=== PATIENT | male | born 1945 | race Caucasian/White ===

== ENCOUNTER → 2017-09-24 | Outpatient (CLI) | payer OTHER ==
[~2017-09-24] MED LIST: OPTIRAY 320 IV PRN
--- NOTE | 2017-09-24 09:04 | DIAGNOSTIC IMAGING REPORT ---
ABD/PELVIS COMBO CLINICAL HISTORY: 72 years-old Male presenting with Z12.5 hematuria, prostate cancer screening. TECHNIQUE: Multidetector CT of the abdomen and pelvis was performed before and after the administration of intravenous contrast. IV contrast: 119 mL of Optiray 320. A dose lowering technique was used consistent with the principles of ALARA (as low as reasonably achievable). COMPARISON: None. CT DOSE (mGy.cm): The estimated cumulative dose is 2338.43 mGycm. FINDINGS: Repair Cameraman topogram: Unremarkable. Lung bases: Asymmetric minimal patchy groundglass opacity primarily in a dependent distribution at the left lung base, possibly atelectasis. Coronary artery aortic valve calcification. Top normal heart size. No pericardial or pleural effusion. Liver: Normal morphology. Normal density. No focal lesion. Patent hepatic vasculature. Biliary: No intrahepatic or extrahepatic biliary ductal dilatation. Normal gallbladder. Pancreas: Normal. Spleen: Normal. Adrenal glands: Normal. Kidneys and ureters: No nephrolithiasis. Normal excretion from the kidneys bilaterally. Well-defined hypodense lesion in the left kidney consistent with simple cyst. Ureters normal. Bladder: Allowing for underdistention, mild circumferential bladder wall thickening likely indicating chronic outlet obstruction. Numerous bladder calculi evident. Pelvic organs: Prostate enlargement likely secondary to benign prostatic hyperplasia. Bowel: Limited diverticulosis of the proximal sigmoid colon. The appendix is normal. No bowel obstruction. Mild proximal jejunal wall thickening suggested without perienteric inflammatory change. Peritoneal cavity: No free fluid or intraperitoneal gas. Lymph nodes: No enlarged lymph nodes in the abdomen or pelvis. Vasculature: Atherosclerosis of the normal caliber abdominal aorta. IVC patent. Abdominal wall: Small fat-containing umbilical hernia. Bilateral varicoceles may be present. Musculoskeletal: Degenerative changes of the spine. IMPRESSION: 1. Numerous bladder calculi which could account for the patient's hematuria. No nephrolithiasis or hydronephrosis. 2. Prostatomegaly likely indicates underlying benign prostatic hyperplasia. Suspected resulting chronic bladder outlet obstruction. Prostate MRI allows for assessment of potential underlying prostate cancer. 3. Suggestion of jejunal wall thickening. This could be due to underdistention or suggest a mild enteritis. 4. Patchy minimal groundglass opacity at the left lung base, possibly atelectasis. Electronically signed by: Nick Laurent M.D. 09/24/2017 9:03 AM Dictated Date/Time: 09/24/2017 8:51 AM
== END | disposition home or self-care (01) ==
LOC: C.CTS 08:25
PROVIDERS: ATTEND Urology
DX: Z12.5 Encounter for screening for malignant neoplasm of prostate (principal); N21.0 Calculus in bladder; N42.9 Disorder of prostate, unspecified; R91.8 Other nonspecific abnormal finding of lung field

== ENCOUNTER 2017-11-09 09:12 | Day surgery (SDC) | payer OTHER ==
[2017-10-19 10:43] VITALS: BMI 35.0
--- NOTE | 2017-10-26 12:43 | PAT Medication Instructions ---
Service Date Oct 26, 2017. Current Home Medication List Aspirin (Aspirin Ec), 81 MG PO QAM Coenzyme Q10 (Ubidecarenone) (Coq10), 100 MG PO QAM Fesoterodine Fumarate (Toviaz), 1 TAB PO HS Garlic (Garlic), 1,000 MG PO QAM Hydrochlorothiazide (Hctz), 25 MG PO QAM Indomethacin (Indocin), 50 MG PO DAILY PRN for MUSCLE SPASMS Krill Oil (Krill Oil), 1 CAP PO QAM Lisinopril (Prinivil), 20 MG PO QAM Simvastatin (Zocor), 40 MG PO QPM Sotalol HCl (Sotalol HCl), 40 MG PO BID Medication Instructions For Your Scheduled Surgery Contact your surgeon for instructions for: Indomethacin (Indocin), 50 MG PO DAILY PRN for MUSCLE SPASMS - Hold the following medications 2 weeks prior to surgery: Krill Oil (Krill Oil), 1 CAP PO QAM Garlic (Garlic), 1,000 MG PO QAM Coenzyme Q10 (Ubidecarenone) (Coq10), 100 MG PO QAM - Hold the following medications the morning of surgery: Hydrochlorothiazide (Hctz), 25 MG PO QAM Lisinopril (Prinivil), 20 MG PO QAM - Take the following medications the morning of surgery with a sip of water: Sotalol HCl (Sotalol HCl), 40 MG PO BID Aspirin (Aspirin Ec), 81 MG PO QAM - Take the following medications as scheduled the night before surgery: Sotalol HCl (Sotalol HCl), 40 MG PO BID Simvastatin (Zocor), 40 MG PO QPM Fesoterodine Fumarate (Toviaz), 1 TAB PO HS If you have any questions please call us at [phone] or [phone] or [phone]
--- NOTE | 2017-10-26 13:48 | DIAGNOSTIC IMAGING REPORT ---
CHEST 2 VIEWS ROUTINE CLINICAL HISTORY: Preoperative evaluation. COMPARISON STUDY: No previous studies for comparison. FINDINGS: Lung volumes are normal. No consolidation is evident. There is no evidence of pulmonary edema. There is no pneumothorax or pleural effusion. Right neck surgical clips are noted. Cardiac size is at the upper limits of normal. IMPRESSION: 1. No acute cardiopulmonary findings. 2. Borderline cardiomegaly. Electronically signed by: Pavel Burks M.D. 10/26/2017 1:47 PM Dictated Date/Time: 10/26/2017 1:45 PM
[2017-10-26 13:54] LABS: BASO % 0.4 %; BASO ABS # 0.04 K/uL (0-0.2); EOS % 3.4 %; HEMATOCRIT 44.5 % (42-52); HEMOGLOBIN 14.9 g/dL (14.0-18.0); IG# 0.04 K/uL (0.00-0.02); LYMPH % 27.4 %; LYMPH ABS # 2.45 K/uL (1.2-3.4); MEAN CELL VOLUME 87.1 fL (80-100); MEAN CORPUSCULAR HEMOGLOBIN 29.2 pg (25-34); MEAN CORPUSCULAR HGB CONC 33.5 g/dl (32-36); MEAN PLATELET VOLUME 10.9 fL (7.4-10.4); MONO % 11.6 %; MONO ABS # 1.04 K/uL (0.11-0.59); NEUT % 56.8 %; NEUT ABS # 5.06 K/uL (1.4-6.5); PLATELET COUNT 208 K/uL (130-400); RED CELL DISTRIBUTION WIDTH SD 44.2 fL (36.4-46.3); WHITE BLOOD COUNT 8.93 K/uL (4.8-10.8)
[2017-10-26 14:25] LABS: CALCIUM 9.1 mg/dl (8.5-10.1); CREATININE 0.94 mg/dl (0.60-1.40); POTASSIUM 3.6 mmol/L (3.5-5.1)
[~2017-11-09] VITALS: Ht 172.7 cm; Wt 105.9 kg
[~2017-11-09 09:12] MED LIST changes: +ASPI81TA28 PO; +ATROPINE SULFATE 0.1 MG/ML 5ML SYR IV PRN; +BTP80 PO; +CIPROFLOXACIN / D5W 400 MG IV SCH; +COEN100C7 PO; +EpHEDrine SULFATE INJ 50 MG/ML AMP IV PRN; +FESO8TAB PO; +GARL10007 PO; +HYDR25TA4 PO; +INDO-24 PO; +KRIL1000 PO; +LACTATED RINGER'S 1000ML 1,000 ML IV SCH; +LISI20TA3 PO; -OPTIRAY 320 IV PRN; +SIMV40TA2 PO
[2017-11-09 09:44] VITALS: BP 190/82; PULSE 88; TEMP 36.5; O2SAT 92; Ht 172.7 cm; Wt 105.9 kg
[2017-11-09] MEDS ORDERED: CIPR-255 PO (09:54)
[2017-11-09] MEDS ORDERED: OXYC7.5T65 PO (09:54)
[2017-11-09] MEDS ORDERED: PHEN-775 PO (09:54)
--- NOTE | 2017-11-09 09:56 | Discharge Instructions ---
Discharge Instructions Date of Service Nov 09, 2017. Admission Reason for Admission: Benign Prostatic Hyperplasia, Bladder Stones Discharge Discharge Diagnosis / Problem: BPH, bladder stone s/p laser cystolithopaxy, TURBN, fulg prostate, Urolift Discharge Goals Goal(s): Improve function, Improve disease control, Therapeutic intervention Activity Recommendations Activity Limitations: as noted below Lifting Limitations: no more than 25 pounds, gradually increase as tolerated Exercise/Sports Limitations: rest today, gradually increase as tolerated May Resume Sexual Activity: after follow-up appointment Shower/Bathe: no limitations Driving or Machine Use: resume 1 day after discharge . Instructions / Follow-Up Instructions / Follow-Up In office as scheduled for postoperative visit. Removal of miranda catheter on Nov 11 at 10:45 AM in [place] Office. Current Hospital Diet Patient's current hospital diet: Discharge Diet Recommended Diet: Regular Diet (good fluid intake) Procedures Procedures Performed: Laser cystolithopaxy, transurethral button vaporization of bladder, fulguration of prostatic bleeders, Urolift Pending Studies Studies pending at discharge: yes List of pending studies: Stone analysis. Medical Emergencies . Who to Call and When: Medical Emergencies: If at any time you feel your situation is an emergency, please call 911 immediately. . Non-Emergent Contact Non-Emergency issues call your: Urologist Call Non-Emergent contact if: you have a fever, temperature is above 101, your pain is not controlled, your pain is worsening, your pain is unusual for you, your pain is concerning you, you have any medication questions . . "Provider Documentation" section prepared by Clarence Britton. . VTE Core Measure Inpt VTE Proph given/why not?: SCD's [place] Drug Monitoring Program Search Results: patient reviewed within database, no issues identified
--- NOTE | 2017-11-09 10:23 | History & Physical Bridge Note ---
H&P Re-Evaluation Bridge Note: I have examined the patient, reviewed the History & Physical and in the interval since the performance of the History & Physical I have noted the following changes of clinical significance: No changes noted
--- NOTE | 2017-11-09 10:33 | [facility] Post Operative Brief Note ---
Immediate Operative Summary Operative Date Nov 09, 2017. Pre-Operative Diagnosis Bladder stone, BPH Post-Operative Diagnosis Same Procedure(s) Performed Laser cystolithopaxy, transurethral bipolar button vaporization of bladder neck, fulguration of prostatic bleeders, Urolift Surgeon Tobi Patterson Cogeneration Operator Surgeon(s) NA Estimated Blood Loss 30 Findings 4 Urolift used, no residual stones, obstructive bladder neck vaporized. Specimens Bladder stone Drains 22 fr 10 cc H2) Anesthesia GALMA Complication(s) None Disposition Recovery Room / PACU
[2017-11-09] MEDS ORDERED: PROPOFOL IV EMULSION 10 MG/ML 20 ML VIAL IV ONE (12:30)
[2017-11-09] MEDS ORDERED: FENTANYL CITRATE INJ 50 MCG/1 ML 2 ML VIAL ONE ×3 (12:32→15:09)
[2017-11-09] MEDS ORDERED: DEXAMETHASONE SOD INJ 4 MG/ML VIAL ONE (13:06)
[2017-11-09] MEDS ORDERED: LIDOCAINE HCL 2% 2 ML VIAL (20MG/ML) ONE (13:06)
[2017-11-09] MEDS ORDERED: ONDANSETRON INJ 2 MG/ML 2 ML VIAL ONE (13:06)
[2017-11-09] MEDS ORDERED: EpHEDrine SULFATE 50MG/5ML SYR ONE (13:16)
[2017-11-09] MEDS ORDERED: BELLADONNA/OPIUM SUPP 60 MG SUPP PR ONE (13:59)
[2017-11-09] MEDS ORDERED: PHENAZOPYRIDINE HCL 200 MG TAB PO PRN (14:45)
[2017-11-09] MEDS ORDERED: OXYCODONE/ACETAMINOPHEN 5-325 TAB PO PRN ×2 (14:45)
--- NOTE | 2017-11-09 14:51 | [facility] Operative Report ---
Operative Report Operative Date Nov 09, 2017. Pre-Operative Diagnosis Bladder stone, Benign Prostate Hypertrophy Post-Operative Diagnosis Bladder Stone, Benign Prostate Hypertrophy Procedure(s) Performed Laser cystolithopaxy, transurethral bipolar button vaporization of bladder neck, fulguration of prostatic bleeders, Urolift implantation Surgeon Tobi Patterson Logging Assistant Surgeon(s) NA Estimated Blood Loss 30 Findings Four Urolift implants used with open prostatic fossa, bleeding and obstructive bladder neck tissue vaporized using bipolar button, no residual stones noted after completion of laser cystolithopaxy. Specimens A: Bladder Stone Fragments for Chemical Analysis Drains 22 fr 10 cc H2) Anesthesia GALMA Complication(s) None Disposition Recovery Room / PACU Indications Patient is a 72-year-old male with BPH, numerous large bladder stones and urge incontinence who is here today for laser cystolitholapaxy and implantation of Urolift. Please see H&P for further details. Intravenous ciprofloxacin provided for antibiotic coverage and SCDs used for DVT prophylaxis. Description of Procedure Patient was properly identified and brought into the operative suite after identification for appropriate consent of the chart. General anesthesia with laryngeal mask was initiated and patient was prepped and draped in the standard fashion for this procedure. Full timeout procedure was followed. 26 Afghan resectoscope was introduced into the bladder under direct visualization using an angled ureteral access catheter a 600 holmium laser fiber was used on both dusting and standard settings to fragment the patient's large and multiple bladder stones and irrigated free. This process took over an hour due to the size and resistance of the stones. No significant injuries or perforations bladder were appreciated throughout the case. Bladder inflammation and irritation was present as well as trabeculation consistent with chronic bladder outlet obstruction. Ureteral orifices were appreciated to be in the normal anatomic location and effluxing clear yellow urine bilaterally. These were free of injury the end of the case. After this was complete and all stone fragments were irrigated free some bleeding from an obstructive bladder neck was appreciated. Bipolar button was used to vaporizes bladder neck tissue and create relaxing incisions at the 5 and 7 o'clock position to avoid future bladder neck contracture. Bipolar button was also used for hemostasis at the level of the bladder neck as well as within the prostatic fossa or other bleeding prostate vessels were appreciated. After hemostasis was obtained the bipolar resectoscope was removed and the Urolift scope was placed. Four Urolift implants were placed with 2 being at the level of the bladder neck on the left and right-hand side and 2 being at the level of the verumontanum on the left and right-hand side. This created an open anterior channel without complete decompression of the prostatic fossa. As noted previously this plan was to avoid worsening of urge incontinence the postoperative period due to the patient's preoperative symptoms and findings as discussed in the H&P. After this was complete the bladder was partially distended and a 22 Afghan Yañez catheter was placed with 10 mL of sterile water in the balloon. Light pink urine was noted to be draining and catheter was irrigated with isovolemic return. Catheter was placed to gravity drainage and belladonna and opium suppository was provided for postoperative analgesia. Catheter was placed to gravity drainage and anesthesia was reversed. Patient was transferred to the recovery room in stable condition. Follow-up care: Patient will be discharged home with a prescription for ciprofloxacin, Percocet and Pyridium. Outpatient trial void is arranged in 2 days' time. Patient is instructed to contact our service should he note any fevers, chills, nausea, vomiting or other difficulties in the postoperative period. Outpatient postoperative appointment is confirmed. I attest to the content of the Intraoperative Record and any orders documented therein. Any exceptions are noted below.
--- NOTE | 2017-11-09 15:26 | Anesthesiology Progress Note ---
Anesthesia Post Op Note Date & Time Nov 09, 2017 at 15:25 Vital Signs Pain Intensity: 5 Vital Signs Past 12 Hours Date Time Temp Pulse Resp B/P (MAP) Pulse Ox O2 Delivery O2 Flow Rate FiO2 11/09/17 15:21 76 14 99 11/09/17 15:21 76 14 11/09/17 15:20 149/88 11/09/17 15:16 74 14 99 11/09/17 15:16 74 14 11/09/17 15:15 158/87 11/09/17 15:11 78 20 11/09/17 15:11 78 20 100 11/09/17 15:10 162/91 11/09/17 15:10 162/91 11/09/17 15:07 79 17 11/09/17 15:07 78 17 99 11/09/17 15:07 79 17 11/09/17 15:07 78 17 99 11/09/17 15:05 167/87 11/09/17 15:05 167/87 11/09/17 15:02 80 19 11/09/17 15:02 80 19 11/09/17 15:02 80 19 100 11/09/17 15:02 80 19 100 11/09/17 15:01 156/92 11/09/17 15:01 156/92 11/09/17 14:57 82 15 11/09/17 14:57 82 15 11/09/17 14:57 81 15 100 11/09/17 14:57 81 15 100 11/09/17 14:55 163/95 11/09/17 14:55 163/95 11/09/17 14:52 84 20 100 11/09/17 14:52 84 20 100 11/09/17 14:52 83 20 11/09/17 14:52 83 20 11/09/17 14:50 164/93 11/09/17 14:50 164/93 11/09/17 14:47 86 13 11/09/17 14:47 85 13 100 11/09/17 14:47 85 13 100 11/09/17 14:47 86 13 11/09/17 14:45 163/96 11/09/17 14:45 163/96 11/09/17 14:44 164/98 11/09/17 14:44 164/98 11/09/17 14:42 36.0 87 16 168/101 (120) 100 Oxymask 10 11/09/17 14:42 86 19 168/101 100 11/09/17 14:42 87 19 11/09/17 14:42 87 19 11/09/17 14:42 86 19 168/101 100 11/09/17 09:44 36.5 88 16 190/82 (118) 92 Room Air Notes Mental Status: alert / awake / arousable, participated in evaluation Pt Amnestic to Procedure: Yes Nausea / Vomiting: adequately controlled Pain: adequately controlled, improving with treatment Airway Patency, RR, SpO2: stable & adequate BP & HR: stable & adequate Hydration State: stable & adequate Anesthetic Complications: no major complications apparent
[2017-11-09 16:10] VITALS: BP 176/91; PULSE 82; TEMP 36.5; O2SAT 95
[2017-11-09 16:40] VITALS: BP 164/90; PULSE 90; O2SAT 92
[2017-11-09 17:10] VITALS: BP 158/90; PULSE 90; TEMP 36.5; O2SAT 96
== END 2017-11-09 18:18 | disposition home or self-care (01) ==
LOC: C.ACU 09:12
PROVIDERS: ATTEND Urology
DX: N21.0 Calculus in bladder (principal); N40.0 Benign prostatic hyperplasia without lower urinary tract symptoms; N13.8 Other obstructive and reflux uropathy; N47.1 Phimosis; N39.41 Urge incontinence; I10 Essential (primary) hypertension; Z87.891 Personal history of nicotine dependence; Z79.82 Long term (current) use of aspirin
CPT/HCPCS: 52318; C9740